=== PATIENT | male | born 1985 | race Caucasian/White ===

== ENCOUNTER 2019-11-17 15:53 | Emergency (ER) | payer BC ==
[2019-11-17] MEDS ORDERED: fentaNYL 100 MCG/2 ML SDV IM ONE (16:05)
--- NOTE | 2019-11-17 16:09 | EDM.PDOC ---
<OfficerHuey - Last Filed: 11/17/19 18:08> ED HPI GENERAL MEDICAL PROBLEM - General Chief Complaint: Upper Extremity Injury/Pain Stated Complaint: FELL OFF BOARD Time Seen by Provider: 11/17/19 15:56 Source of Information: Reports: Patient, RN Notes Reviewed History Limitations: Reports: No Limitations - History of Present Illness INITIAL COMMENTS - FREE TEXT/NARRATIVE: 33-year-old gentleman presents emergency department today following a fall at the worksite he estimates he was 6 foot off the ground standing on a 2 x 4 it broke he fell onto a wooden deck below. There was no loss of consciousness he has difficulty recalling some of the details he landed predominantly on his left side of his face and is complaining of left wrist pain as well. No nausea or vomiting no difficulty breathing no other complaints left wrist Pain Score (Numeric/FACES): 7 - Related Data Allergies Allergy/AdvReac Type Severity Reaction Status Date / Time Sulfa (Sulfonamide Allergy Rash Verified 11/17/19 15:56 Antibiotics) Home Meds: Home Meds PARoxetine [Paxil] 10 mg PO DAILY 11/29/15 [History] Past Medical History Musculoskeletal History: Reports: Other (See Below) Other Musculoskeletal History: suclexated ribs r side Neurological History: Reports: Concussion Psychiatric History: Reports: Anxiety - Infectious Disease History Infectious Disease History: Reports: Chicken Pox Social & Family History - Tobacco Use Smoking Status *Q: Never Smoker - Caffeine Use Caffeine Use: Reports: None - Recreational Drug Use Recreational Drug Use: No Review of Systems - Review of Systems Review Of Systems: See Below Constitutional: Reports: No Symptoms Eyes: Reports: No Symptoms Ears: Reports: No Symptoms Nose: Reports: No Symptoms Mouth/Throat: Reports: No Symptoms Respiratory: Reports: No Symptoms Cardiovascular: Reports: No Symptoms GI/Abdominal: Reports: No Symptoms Genitourinary: Reports: No Symptoms Musculoskeletal: Reports: Joint Pain (Wrist pain) Skin: Reports: Wound (Above left eye) Neurological: Reports: Other (Loss of consciousness) ED EXAM, GENERAL - Physical Exam Exam: See Below Free Text/Narrative:: Primary survey GCS 15 airways open patent and clear lungs are clear to auscultation bilaterally and cardiovascular demonstrates regular rate and rhythm S1-S2 Secondary survey General: GCS 15 male, not in any distress, alert and oriented x3 HEENT: head is ecchymosis with laceration is appreciated above the left eye normocephalic, eyes pupils equal round reactive to light, sclera clear no conjunctivitis appreciated extraocular eye movements intact. Ears tympanic membranes clear and best landmarks and light reflex are present bilaterally canals are clear. Nose no septal deviation, nares are clear, no blood present. Mouth mucosa is moist and pink no erythema or exudate noted in soft palate, tongue is midline uvula is midline, dentition is intact. Neck: Supple no thyromegaly no tracheal deviation. NO posterior midline C-spine tenderness NO evidence of intoxication GCS > 14 No focal neurological deficit NO distracting injury Nodes: Cervical nodes subclavicular nodes nontender no palpable lymphadenopathy noted. Lungs: clear to auscultation bilaterally with symmetrical respirations, no adventitious noise appreciated. CV: Regular rate and rhythm S1 and S2 appreciated no murmurs rubs or gallops noted. Abdomen: Soft, nontender, no palpable masses or organomegaly appreciated, no distention no guarding bowel sounds are present, [scars ]. Neuro: Cranial nerves II test with pupillary light reflex 4 mm to 2 mm bilaterally, CN III test pupillary constriction, lid elevation and eye abduction bilaterally, CN IV downward movement of eyes bilaterally, CN V good jaw movement, CN lateral deviation of the eyes bilaterally to finger movement, CN VII symmetrical smile shows teeth without difficulty, CN VIII pass finger rub to ears bilaterally, CN IX adequate voice and tone, CN X adequate voice and tone no difficulty swallowing, CN XI can shrug shoulders without difficulty, CN XII can stick tongue out without difficulty, cranial nerves II to XII intact as tested, Skin: Warm and dry, intact other than laceration described above Extremities: No lower extremity edema appreciated, no tenderness shoulders elbows bilaterally or right wrist he is tender over the left wrist cannot move it without pain. Pelvic rocks is negative tenderness no tenderness in the knees no tenderness in the ankles, no tenderness along the back ED TRAUMA EXTREMITY PROCEDURES - Laceration/Wound Repair Left Face Lac/Wound Length In cm: 1.5 Appearance: Subcutaneous, Linear Distal NVT: Neuro & Vascular Intact, No Tendon Injury Anesthetic Type: Local Local Anesthesia - Lidocaine (Xylocaine): 1% with EPI Local Anesthetic Volume: 1cc Skin Prep: Saline Saline Irrigation (cc's): 30 Exploration/Debridement/Repair: Wound Explored, In a Bloodless Field, Explored to Base Closed With: Sutures Suture Size: 6-0 # of Sutures: 1 Suture Type: Running Sterile Dressing Applied: Nurse Tetanus Status Addressed: Yes Complications: No - Splinting Left Upper Extremity Splint Site: wrist Pre-Procedure NV Status: Normal Post-Procedure NV Status: Normal Splint Material: Fiberglass Splint Design: Posterior Applied & Form Fitted By: Provider, Nurse Provider Post-Splint Application NV Check: NV Status Normal, Good Position Complications: No Departure - Departure Disposition: Home, Self-Care 01 Clinical Impression: Concussion Qualifiers: Encounter type: initial encounter Loss of consciousness presence/duration: with LOC of 30 min or less Qualified Code(s): S06.0X1A - Concussion with loss of consciousness of 30 minutes or less, initial encounter Fracture of left distal radius Qualifiers: Encounter type: initial encounter Fracture type: closed Fracture morphology: unspecified fracture morphology Qualified Code(s): S52.502A - Unspecified fracture of the lower end of left radius, initial encounter for closed fracture Laceration of left eyebrow Qualifiers: Encounter type: initial encounter Qualified Code(s): S01.112A - Laceration without foreign body of left eyelid and periocular area, initial encounter - Discharge Information Instructions: Laceration Care, Adult, Concussion, Adult Referrals: PCP,None [Primary Care Provider] - Forms: ED Department Discharge Care Plan Goals: Sutures can be removed in 6 days. Recheck with orthopedics as discussed with Officer. Increase activity as tolerated, ice to sore areas for the first 48 hours will be helpful. A regular anti-inflammatory such as ibuprofen will help, add stronger pain medication as directed if needed. Sepsis Event Note (ED) - Evaluation Sepsis Screening Result: No Definite Risk <Vinicius Garber - Last Filed: 11/17/19 22:15> Course - Vital Signs Last Recorded V/S: Last Vital Signs Temp 96.9 F 11/17/19 16:00 Pulse 91 11/17/19 16:28 Resp 20 11/17/19 16:00 BP 138/70 11/17/19 16:59 Pulse Ox 99 11/17/19 16:28 - Orders/Labs/Meds Orders: Active Orders 24 hr Category Date Time Status Consult to Orthopedic Clinic [CONS] Routine Cons 11/17/19 18:15 Active Humerus Lt [CR] Stat Exams 11/17/19 18:07 Taken DME for Discharge [COMM] Stat Oth 11/17/19 19:10 Ordered Meds: Medications Discontinued Medications Generic Name Dose Route Start Last Admin Trade Name Yevgeniy PRN Reason Stop Dose Admin Acetaminophen 650 mg 11/17/19 18:07 11/17/19 18:34 Tylenol PO 11/17/19 18:08 650 mg NOW ONE Administration Bacitracin 1 dose 11/17/19 17:31 11/17/19 17:57 Bacitracin Oint 1 Gm TOP 11/17/19 17:32 1 dose ONETIME ONE Administration Fentanyl 50 mcg 11/17/19 16:05 11/17/19 16:10 Sublimaze IM 11/17/19 16:06 50 mcg ONETIME ONE Administration Lidocaine/Epinephrine 20 ml 11/17/19 17:31 11/17/19 17:56 Xylocaine 1% With Epinephrine 1:100,000 SUBCUT 11/17/19 17:32 20 ml NOW STA Administration Tetanus/Diphtheria Toxoids 0.5 ml 11/17/19 17:41 11/17/19 17:54 Tenivac IM 11/17/19 17:42 0.5 ml .ONCE ONE Administration - Re-Assessments/Exams Free Text/Narrative Re-Assessment/Exam: 11/17/19 18:50 33-year-old male struggling with concussive symptoms, also left arm pain. Care turned over from Officer pending an x-ray of his left arm and observation until improved mentation. He did rapidly improve, better train of thought and less repetitive questioning. 11/17/19 18:55 Humerus x-ray was negative, patient will be discharged to follow-up with orthopedics regarding his fractured wrist. He will be monitored by family over the next couple days. Departure - Departure Time of Disposition: 19:25 Sepsis Event Note (ED) - Focused Exam Vital Signs: Vital Signs Temp Pulse Resp BP Pulse Ox 11/17/19 16:59 138/70 11/17/19 16:28 91 155/96 H 99 11/17/19 16:13 78 145/92 H 94 L 11/17/19 16:00 96.9 F 83 20 141/77 H 98 - My Orders Last 24 Hours: My Active Orders 11/17/19 18:15 Consult to Orthopedic Clinic [CONS] Routine 11/17/19 19:10 DME for Discharge [COMM] Stat - Assessment/Plan Last 24 Hours: My Active Orders 11/17/19 18:15 Consult to Orthopedic Clinic [CONS] Routine 11/17/19 19:10 DME for Discharge [COMM] Stat
[2019-11-17 17:06] VITALS: PULSE 91
[2019-11-17 17:07] VITALS: BP 138/70
--- NOTE | 2019-11-17 17:07 | CRLCR ---
HISTORY: Pain after trauma COMPARISON: None available. FINDINGS: AP, lateral, and oblique views of the left wrist are obtained for a total of three views. There is an acute, oblique, intra-articular fracture of the ulnar aspect of the distal radius, with approximately 3 millimeters of proximal and ulnar displacement of the minor fracture fragment. There is no sign of additional fracture or dislocation. Specifically, there is no sign of an associated fracture of the distal ulna or ulnar styloid. The bones of the carpus are in anatomic alignment with the distal radius. No degenerative disease is seen. The soft tissues are normal in appearance with no sign of foreign body. IMPRESSION: Acute, mildly displaced, oblique, intra-articular fracture of the ulnar aspect of the distal radius. Dictated by Edgar Guzman MD @ Nov 17 2019 5:03PM Signed by Dr. Edgar Guzman @ Nov 17 2019 5:06PM
--- NOTE | 2019-11-17 17:15 | CRLCT ---
INDICATION: Trauma TECHNIQUE: CT maxillofacial without contrast. COMPARISON: None FINDINGS: Facial bones: No fractures or bone lesions. Specifically the nasal bones, temporomandibular joints, maxilla and mandible appear intact. Orbits and globes: Unremarkable. Sinuses: No acute or significant findings. Soft tissues: Left periorbital hematoma and laceration. IMPRESSION: Left periorbital hematoma and laceration. No fractures. Dictated by Alexandro Lancaster MD @ 11/17/2019 5:13:59 PM Please note that all CT scans at this facility use dose modulation, iterative reconstruction, and/or weight-based dosing when appropriate to reduce radiation dose to as low as reasonably achievable. Dictated by: Alexandro Lancaster MD @ 11/17/2019 17:14:04 (Electronically Signed)
--- NOTE | 2019-11-17 17:20 | CRLCT ---
INDICATION: trauma INDICATION: Trauma TECHNIQUE: CT head without contrast. COMPARISON: None FINDINGS: CSF spaces: Within normal limits for age. Brain parenchyma: The best-white differentiation is normal. No sign of mass, hemorrhage, or midline shift. Skull base and calvarium: The visualized paranasal sinuses and mastoid air cells demonstrate no acute or significant findings. The visualized orbits are grossly unremarkable. No skull fractures. A left periorbital hematoma and small laceration. IMPRESSION: No evidence of acute intracranial trauma. Left periorbital hematoma and small associated laceration. Dictated by Alexandro Lancaster MD @ 11/17/2019 5:17:42 PM Please note that all CT scans at this facility use dose modulation, iterative reconstruction, and/or weight-based dosing when appropriate to reduce radiation dose to as low as reasonably achievable. Dictated by: Alexandro Lancaster MD @ 11/17/2019 17:17:51 (Electronically Signed)
[2019-11-17] MEDS ORDERED: Lidocaine 1% with EPINEPHrine 1:100,000 50 ML MDV SUBCUT STA (17:31)
[2019-11-17] MEDS ORDERED: Bacitracin Oint 1 GM U/D Packet TOP ONE (17:31)
[2019-11-17] MEDS ORDERED: Diphtheria/Tetanus Toxoids,Adult (Td) 0.5 ML SDV IM ONE (17:41)
[2019-11-17] MEDS ORDERED: Acetaminophen 325 MG Tab PO ONE (18:07)
--- NOTE | 2019-11-20 09:33 | CR ---
Humerus Lt CLINICAL HISTORY: Trauma FINDINGS: There is no acute fracture within the humerus. IMPRESSION: Negative left humerus.
== END 2019-11-17 19:24 | disposition home or self-care (01) ==
LOC: JP.ED 15:53
DX: S52.572A Other intraarticular fracture of lower end of left radius, initial encounter for closed fracture (principal); S06.0X1A Concussion with loss of consciousness of 30 minutes or less, initial encounter; S52.502A Unspecified fracture of the lower end of left radius, initial encounter for closed fracture; S01.112A Laceration without foreign body of left eyelid and periocular area, initial encounter; F41.9 Anxiety disorder, unspecified; Z88.2 Allergy status to sulfonamides; Z79.899 Other long term (current) drug therapy; W17.89XA Other fall from one level to another, initial encounter; Y99.0 Civilian activity done for income or pay
CPT/HCPCS: 12011; 29125; 70450; 70486; 73060; 73110; 90471; 90714; 96372; 99284; A9270; J3010